=== PATIENT | female | born 1975 | race Caucasian/White ===

== ENCOUNTER → 2016-03-29 | Outpatient (CLI) | payer BC ==
[2010-07-08 22:08] VITALS: BP 124/74
[2016-03-29 09:30] LABS: HEMATOCRIT 35.9 % (37.0-47.0); HEMOGLOBIN 12.2 g/dL (12.0-16.0); MEAN CORPUSCULAR HEMOGLOBIN 30.5 PG (27-31); MEAN PLATELET VOLUME 10.4 FL (7.4-12.2); WHITE BLOOD COUNT 7.95 10^3/uL (4.8-10.8)
[2016-03-29 09:49] LABS: ASPARTATE AMINO TRANSFERASE 42 IU/L (8-39); BILIRUBIN,TOTAL 0.7 mg/dL (0.3-1.2); BLOOD UREA NITROGEN 7 mg/dL (7-22); BUN/CREATININE RATIO 8.75 (6-20); CALCIUM 9.4 mg/dL (8.7-10.7); CHLORIDE 107 meq/L (98-112); CREATININE 0.8 mg/dL (0.50-1.20); EST GLOMERULAR FILTRATION > 60 (>60 ml/min/1.73m(2)); GLUCOSE 99 mg/dL (78-110); HDL CHOLESTEROL 40 mg/dL (40-150); POTASSIUM 3.9 meq/L (3.8-5.2); SODIUM 140 meq/L (135-145); TOTAL PROTEIN 7.2 g/dL (6.1-8.0); TRIGLYCERIDES 163 mg/dL (44-200)
[2016-03-29 09:50] LABS: BLOOD UREA NITROGEN 7 mg/dL (7-22); BUN/CREATININE RATIO 8.75 (6-20); CALCIUM 9.4 mg/dL (8.7-10.7); CHLORIDE 107 meq/L (98-112); CREATININE 0.8 mg/dL (0.50-1.20); EST GLOMERULAR FILTRATION > 60 (>60 ml/min/1.73m(2)); GLUCOSE 99 mg/dL (78-110); PHOSPHORUS 4.1 mg/dl (2.4-4.3); POTASSIUM 3.8 meq/L (3.8-5.2); SODIUM 139 meq/L (135-145)
[2016-04-02 06:49] LABS: VITAMIN B1 WHOLE BLOOD 174 nmol/L (70-180)
== END ==
LOC: LAB 09:12
PROVIDERS: ATTEND Surgery
DX: K90.9 Intestinal malabsorption, unspecified (principal); E66.01 Morbid (severe) obesity due to excess calories; F31.60 Bipolar disorder, current episode mixed, unspecified; Z98.84 Bariatric surgery status
CPT/HCPCS: 36415; 80053; 80061; 80069; 80178; 82306; 82607; 82728; 82746; 83540; 83550; 84425; 85027

== ENCOUNTER → 2016-04-05 | Outpatient (CLI) | payer BC ==
[2010-07-08 22:08] VITALS: BP 124/74
[2016-04-05 10:20] LABS: BLOOD UREA NITROGEN 6 mg/dL (7-22); CALCIUM 9.4 mg/dL (8.7-10.7); CHLORIDE 108 meq/L (98-112); CREATININE 0.8 mg/dL (0.50-1.20); EST GLOMERULAR FILTRATION > 60 (>60 ml/min/1.73m(2)); GLUCOSE 98 mg/dL (78-110); PHOSPHORUS 4.3 mg/dl (2.4-4.3); POTASSIUM 3.7 meq/L (3.8-5.2); SODIUM 139 meq/L (135-145)
== END ==
LOC: LAB 09:11
PROVIDERS: ATTEND Nurse Practitioner Psychiatric/Mental Health
DX: F31.60 Bipolar disorder, current episode mixed, unspecified (principal); Z79.899 Other long term (current) drug therapy
CPT/HCPCS: 80069; 80178

== ENCOUNTER → 2016-05-27 | Outpatient (CLI) | payer BC ==
[2010-07-08 22:08] VITALS: BP 124/74
[2016-05-27 09:59] LABS: BLOOD UREA NITROGEN 6 mg/dL (7-22); CALCIUM 9.3 mg/dL (8.7-10.7); CHLORIDE 106 meq/L (98-112); CREATININE 0.8 mg/dL (0.50-1.20); EST GLOMERULAR FILTRATION > 60 (>60 ml/min/1.73m(2)); GLUCOSE 95 mg/dL (78-110); PHOSPHORUS 4.4 mg/dl (2.4-4.3); SODIUM 138 meq/L (135-145)
== END ==
LOC: LAB 09:29
PROVIDERS: ATTEND Nurse Practitioner Psychiatric/Mental Health
DX: F31.60 Bipolar disorder, current episode mixed, unspecified (principal)
CPT/HCPCS: 36415; 80069; 80178

== ENCOUNTER → 2016-06-03 | Outpatient (CLI) | payer BC ==
[2010-07-08 22:08] VITALS: BP 124/74
[2016-06-03 14:52] LABS: FREE T4 (FREE THYROXINE) 1.17 ng/dL (0.93-1.71)
== END ==
LOC: LAB 10:40
PROVIDERS: ATTEND Nurse Practitioner Family
DX: E03.9 Hypothyroidism, unspecified (principal)
CPT/HCPCS: 36415; 84439; 84443

== ENCOUNTER → 2016-06-05 | Outpatient (CLI) | payer BC ==
[2010-07-08 22:08] VITALS: BP 124/74
--- NOTE | 2016-06-05 22:48 | DI ---
XR ABDOMEN KUB UPRIGHT,06/05/2016 10:49 AM: Clinical History: Epigastric pain. Previous Exam: July 08, 2010 Findings: A routine acute abdominal series is performed demonstrating a large amount of stool throughout the en tire colon. There is no subdiaphragmatic free air. There is some gentle levoscoliosis of the mid lumb ar spine. Patient is status post cholecystectomy. The lung bases are clear. There are no pathologic calcifications. Impression: Large amount of stool throughout the colon otherwise unremarkable.
== END ==
LOC: RAD 10:54
PROVIDERS: ATTEND Nurse Practitioner Family
DX: R10.13 Epigastric pain (principal); K59.00 Constipation, unspecified
CPT/HCPCS: 74020

== ENCOUNTER → 2016-06-06 | Outpatient (CLI) | payer BC ==
[2010-07-08 22:08] VITALS: BP 124/74
[2016-06-06 17:35] LABS: BLOOD UREA NITROGEN 9 mg/dL (7-22); BUN/CREATININE RATIO 12.85 (6-20); EST GLOMERULAR FILTRATION > 60 (>60 ml/min/1.73m(2)); PHOSPHORUS 3.8 mg/dl (2.4-4.3); SERUM ALBUMIN 4.2 g/dL (3.5-4.8)
== END ==
LOC: LAB 17:01
PROVIDERS: ATTEND Nurse Practitioner Psychiatric/Mental Health
DX: F31.60 Bipolar disorder, current episode mixed, unspecified (principal)
CPT/HCPCS: 80069; 80178

== ENCOUNTER 2016-06-12 08:26 | Day surgery (SDC) | payer BC ==
[~2016-06-12 08:26] MED LIST: LIDOCAINE 2% VISCOUS(20 MG/1 ML) - 15 ML UD CUP PO ONE; LIDOCAINE W/ SODIUM BICARB 0.5 ML SYR ONE; Lactated Ringers 1,000 ML PRIMARY IV ONE
[2016-06-12 08:44] LABS: URINE SPECIFIC GRAVITY - MAN 1.024
--- NOTE | 2016-06-12 10:37 | GEN.OPNOTE ---
EGD Operative Note Surgery Date: 06/12/16 Preoperative Diagnosis: Epigastric abdominal pain. Gastroesophageal reflux disease. Status post gastric bypass. Postoperative Diagnosis: Same. Marginal ulcer. Procedure: Esophagogastroduodenoscopy with biopsy. Surgeon: Sreekanth Bernard MD Anesthesia Provider: Sammy Shook CRNA Anesthesia Type: MAC Indications: See preoperative diagnosis. Findings: Esophagus: [Normal] GE Junction : [Normal] Fundus : [Pouch with inflammation.] Body : [Not visualized] Prepyloric : [Not visualized] Small Intestine : [Marginal ulceration at the anastomosis. Anastomosis widely patent.] A lubricated flexible upper endoscope was inserted and passed through the esophagus and into the gastric pouch then past the anastomosis into the small bowel limbs. The small bowel itself was unremarkable. There was a marginal ulcer at the anastomotic ring. Biopsies were taken. Hemostasis was assured. There was inflammation of the gastric pouch and multiple biopsies were taken. Hemostasis was assured. The GE junction was unremarkable. The entire esophagus was unremarkable. The scope was withdrawn completing the procedure. Patient tolerated the procedure well without complication. She was taken to outpatient surgery in stable condition. Patient needs to follow up with her gastric bypass surgeon regarding her marginal ulcer. We'll encourage smoking cessation. We'll start the patient on pantoprazole 40 mg by mouth twice a day. Estimated Blood Loss (mL): 2 Fluids: 300 mL. Pathology: Specimens to pathology. Complications: None.
[2016-06-12 11:01] VITALS: RESP 16
[2016-06-12 11:06] VITALS: TEMP 97.3
== END 2016-06-12 10:50 | disposition home or self-care (01) ==
LOC: SDSC 08:26
PROVIDERS: ATTEND Surgery
DX: R10.13 Epigastric pain (principal); K21.9 Gastro-esophageal reflux disease without esophagitis; K59.00 Constipation, unspecified; Z98.84 Bariatric surgery status; K25.9 Gastric ulcer, unspecified as acute or chronic, without hemorrhage or perforation
CPT/HCPCS: 43239; 84703; J2704; J7120

== ENCOUNTER → 2016-08-27 | Outpatient (CLI) | payer BC ==
[2010-07-08 22:08] VITALS: BP 124/74
[2016-08-27 10:51] LABS: BLOOD UREA NITROGEN 7 mg/dL (7-22); BUN/CREATININE RATIO 7.77 (6-20); CALCIUM 9.3 mg/dL (8.7-10.7); EST GLOMERULAR FILTRATION > 60 (>60 ml/min/1.73m(2)); SERUM ALBUMIN 4.3 g/dL (3.5-4.8)
== END ==
LOC: LAB 09:46
PROVIDERS: ATTEND Nurse Practitioner Psychiatric/Mental Health
DX: F31.60 Bipolar disorder, current episode mixed, unspecified (principal)
CPT/HCPCS: 36415; 80069; 80178

== ENCOUNTER → 2016-09-05 | Outpatient (CLI) | payer BC ==
[2010-07-08 22:08] VITALS: BP 124/74
== END ==
LOC: LAB 10:31
PROVIDERS: ATTEND Nurse Practitioner Family
DX: E11.9 Type 2 diabetes mellitus without complications (principal); E03.9 Hypothyroidism, unspecified
CPT/HCPCS: 36415; 83036; 84443

== ENCOUNTER → 2016-09-29 | Outpatient (CLI) | payer BC ==
[2010-07-08 22:08] VITALS: BP 124/74
== END ==
LOC: LAB 06:17
PROVIDERS: ATTEND Nurse Practitioner Psychiatric/Mental Health
DX: F31.60 Bipolar disorder, current episode mixed, unspecified (principal)
CPT/HCPCS: 36415; 80178

== ENCOUNTER → 2016-10-01 | Outpatient (CLI) | payer BC ==
[2010-07-08 22:08] VITALS: BP 124/74
[2016-10-01 12:10] LABS: HEMOGLOBIN 12.1 g/dL (12.0-16.0); MEAN CORPUSCULAR HEMOGLOBIN 29.3 PG (27-31); MEAN CORPUSCULAR HGB CONC 32.7 g/dL (33-37); MEAN CORPUSCULAR VOLUME 89.6 FL (81-99); MEAN PLATELET VOLUME 10.5 FL (7.4-12.2); RED BLOOD COUNT 4.13 10^6/uL (4.20-5.40)
[2016-10-01 12:16] LABS: BLOOD UREA NITROGEN 8 mg/dL (7-22); CALCIUM 9.4 mg/dL (8.7-10.7); EST GLOMERULAR FILTRATION > 60 (>60 ml/min/1.73m(2)); SERUM ALBUMIN 4.3 g/dL (3.5-4.8)
--- NOTE | 2016-10-01 13:25 | EKG ---
[address] [address] Measurements Intervals Gerald Rate: 66 P: 60 CO: 203 QRS: 44 QRSD: 100 T: 14 QT: 426 QTc: 439 Interpretive Statements SINUS RHYTHM WITH FIRST DEGREE AV BLOCK Compared to ECG 08/01/2015 19:20:45 T-wave abnormality no longer present Electronically Signed On 10-01-16 17:25:11 MDT by Brad Reese [email or web address]
== END ==
LOC: LAB 11:52
PROVIDERS: ATTEND Neurological Surgery
DX: Z01.812 Encounter for preprocedural laboratory examination (principal); M48.02 Spinal stenosis, cervical region
CPT/HCPCS: 36415; 80053; 85027; 86850; 86900; 86901; 93005; 93010

== ENCOUNTER → 2016-10-27 | Outpatient (CLI) | payer BC ==
[2010-07-08 22:08] VITALS: BP 124/74
== END ==
LOC: LAB 10:29
PROVIDERS: ATTEND Nurse Practitioner Psychiatric/Mental Health
DX: F31.60 Bipolar disorder, current episode mixed, unspecified (principal)
CPT/HCPCS: 36415; 80178